=== PATIENT | male | born 1985 | race Caucasian/White ===

== ENCOUNTER 2020-11-14 18:36 | Emergency (ER) | payer BC, MEDICAID, SELFPAY ==
[2020-11-14 18:40] VITALS: BP 132/73; PULSE 86; RESP 20; TEMP 36.7; O2SAT 98; BMI 24.3
--- NOTE | 2020-11-14 18:50 | XR_ITS ---
PROCEDURE INFORMATION: Exam: XR Right Knee Exam date and time: 11/14/2020 6:50 PM Age: 35 years old Clinical indication: Pain; Knee; Right; Additional info: Right anterior knee pain TECHNIQUE: Imaging protocol: XR Right knee. Views: 3 views. COMPARISON: CR [id number] [id number] 07/04/2016 8:49 PM FINDINGS: Bones/joints: On oblique series 2, there is slight cortical lobulation/irregularity along the superior-lateral surface of the patella which appears to be a change compared with the previous exam from 07/04/2016, but this may just be an artifact from rotated positioning rather than true patellar fracture. No definite fracture line is seen on the other views, and there is no significant knee joint effusion. No other acute appearing fracture or dislocation. Slightly coarsened trabecular pattern in the proximal tibial and fibular diaphyses with chronic appearing cortical-periosteal thickening, likely chronic stress reaction or sequela of old trauma.There are no lytic skeletal lesions seen. No significant arthritic deformities. No significant knee joint effusion visible. Soft tissues: No radiopaque foreign bodies. No pathologic soft tissue calcification. IMPRESSION: 1. Minimal deformity of the superolateral patellar cortex which may be new compared with 2017, only seen on oblique series 2. If the patient had trauma to the patella, a sunrise view may help to exclude a patellar injury. 2. No other fracture, dislocation, or evidence of significant knee joint effusion.
--- NOTE | 2020-11-14 18:57 | HMH.EDUTC ---
[facility] [place] Clinical Impression: Knee pain Qualifiers: Chronicity: unspecified Laterality: right Qualified Code(s): M25.561 - Pain in right knee Disposition: Home, Self-Care Condition on Discharge: Good Instructions: How to Use Crutches, How To Perform RICE (Rest, Ice, Compress, Elevate), DI for Knee Pain, Etodolac Additional Instructions: *weight bearing as tolerated *RICE, Rest the extremity, Ice 15-20 minutes 3-4 times daily, Compress- wear the wan wrap as discussed as much as possible to help reduce swelling and pain, Elevate the extremity when at rest *Wan wrap is for support and help control swelling, use it except in the shower. Be sure that is not to tight but not to loose either *Elevate when resting *Ibuprofen 600-800mg every 6-8 hours as needed for pain an inflammation. If need something more can take Tylenol in between doses of Ibuprofen to help Immediately follow up with your family doctor for new or worsening of symptoms, or no noticeable improvement over the next 3-5 days Prescriptions: Etodolac 200 mg PO Q6HP PRN #20 cap PRN Reason: Moderate Pain Transmission Status: Received by [facility] Referrals: Sami Jones MD [Primary Care Provider] - As needed Forms: Work/School Release Time of Disposition: 19:40 Medical Decision Making - Raffy Inquiry Pt receiving controlled substance: No Raffy was queried for this patient: No Vital Signs: 11/14/20 18:40 11/14/20 19:41 Temperature 98.1 F 98.1 F Temperature Source Oral Pulse Rate 86 Pulse Rate [Right Brachial] 86 Respiratory Rate 20 20 Blood Pressure 132/73 Blood Pressure [Right Arm] 132/73 Blood Pressure Mean [Right Arm] 92 Blood Pressure Source [Right Arm] Automatic Cuff Blood Pressure Position [Right Arm] Sitting 02 Sat by Pulse Oximetry 98 Oxygen Delivery Method Room Air - Radiology Data #1 Image(s): Knee Image Reviewed: Yes I reviewed the patient's radiology image w/the ED provider Preliminary Findings: No Fracture Seen [facility] [place] - General Stated complaint: Pain R Knee Time Seen by Provider: 11/14/20 18:57 Mode of Arrival: Ambulatory Source of Information: Patient Limitations: No Limitations Description of Symptoms (Recalled from Triage Doc. by RN): PATIENT C/O RIGHT KNEE PAIN FOR A COUPLE OF DAYS. NO KNOWN INJURY HEENT Symptoms (Recalled from RN notes): No Resp Symptoms (Recalled from RN notes): No Skin Symptoms (Recalled from RN notes): No MS Symptoms (Recalled from RN notes): Yes Functional Status (Recalled from RN notes): WNL - History of Present Illness Provider Complaint: Patient state that his right leg is shorter than his left since and he has been having pain on and off at times but for the last couple of days he has been having sharp pain in his right knee Denies known injury States that pain is worse when he tries to step down on it - Related Data Previous Rx's Medication Instructions Recorded Sulfamethoxazole/Trimethoprim 1 each PO BID #20 tablet 03/27/18 [Bactrim DS tablet] clindamycin HCL [Clindamycin HCl 300 mg PO TID #21 cap 03/27/18 300mg Cap] Etodolac 200 mg PO Q6HP PRN #20 cap 11/14/20 Allergies Allergy/AdvReac Type Severity Reaction Status Date / Time No Known Allergies Allergy Verified 11/14/20 19:00 - Worker's Comp Is this a Worker's Comp case?: No [facility] History - Hepatitis A Screen Drug use history?: No High risk sexual behaviors?: No History of sexually transmitted infection?: No Currently employed?: No Childcare worker?: No Do you have indoor plumbing?: Yes Do you have electricity?: Yes Attestation statement:: This patient has been screened for Hepatitis A risk factors. I have reviewed the patient's past medical history: Yes Medical History: Reports:: MRSA Other Medical History: Reports: Other (IV drug use) - Social History Smoking Status: Current every day smoker Tobacco Type: cigarettes Alcohol Intake: never Occ
[2020-11-14 19:41] VITALS: BP 132/73; PULSE 86; RESP 20; TEMP 36.7; O2SAT 98
== END 2020-11-14 19:43 | disposition home or self-care (01) ==
PROVIDERS: Emergency Provider Nurse Practitioner; PCP Emergency Medicine
DX: M25.561 Pain in right knee (principal); F17.210 Nicotine dependence, cigarettes, uncomplicated
CPT/HCPCS: 73562; 99202; G0463

== ENCOUNTER → 2021-01-10 19:01 | Outpatient (CLI) | payer BC, MEDICAID, SELFPAY ==
[2021-01-10 19:30] LABS: Chloride 95 mmol/L (98-107); Potassium 3.4 mmoL/L (3.5-5.1); Sodium 135 mmol/L (136-145)
[2021-01-10 19:33] LABS: Alanine Aminotransferase 20 U/L (12-78); Albumin Level 3.2 g/dl (3.5-5.0); Albumin/Globulin Ratio 0.8 (1.1-1.8); Alkaline Phosphatase 86 U/L (38-126); Anion Gap 12.4 mEq/L (5-15); Aspartate Amino Transferase 45 U/L (17-59); Bilirubin,Total 0.3 mg/dl (0.2-1.3); Blood Urea Nitrogen 6 mg/dl (9-20); Carbon Dioxide 31 mmol/L (22.0-30.0); Estimated Glomerular Filt Rate 243 ml/min (>60); GFR (African American) 295 ML/MIN (>60); Globulin 4.2 g/dL (1.3-3.2); Total Protein,Serum 7.4 g/dl (6.3-8.2)
[2021-01-10 19:34] LABS: Calcium 8.6 mg/dl (8.4-10.2); Glucose 106 mg/dl (74-100)
== END ==
PROVIDERS: Visit Provider Emergency Medicine
DX: Z00.00 Encounter for general adult medical examination without abnormal findings (principal)
CPT/HCPCS: 80053

== ENCOUNTER 2021-03-10 12:48 | Outpatient (RCR) | payer BC, MEDICAID, SELFPAY | END 2021-03-10 12:50 | disposition home or self-care (01) | LOC: PT 12:48 | PROVIDERS: PCP Emergency Medicine; Visit Provider Orthopaedic Surgery | DX: M87.051 Idiopathic aseptic necrosis of right femur (principal) | CPT/HCPCS: 97163 ==

== ENCOUNTER → 2021-04-18 10:35 | Outpatient (CLI) | payer BC, MEDICAID, SELFPAY ==
[2021-04-18 11:08] LABS: Basophils % 0.2 % (0.1-2.0); Eosinophils # 0.1 K/mm3 (0.0-0.4); Eosinophils % 0.6 % (0.1-12.0); Hematocrit 40.1 % (42.0-52.0); Hemoglobin 13.3 g/dL (14.1-18.0); Lymphocytes # 3.4 K/mm3 (0.7-4.5); Lymphocytes % 21.3 % (10-50); Mean Corpuscular HGB Conc 33.3 g/dL (31.8-35.4); Mean Corpuscular Hemoglobin 28.7 pg (27.0-31.2); Mean Corpuscular Volume 86.2 fl (80-94); Mean Platelet Volume 6.9 fl (7.4-10.4); Monocytes # 0.9 K/mm3 (0.1-1.0); Monocytes % 5.4 % (1.7-9.3); Neutrophils # 11.5 K/mm3 (1.8-7.8); Neutrophils % 72.6 % (37.0-80.0); Platelet Count 391 K/mm3 (142-424); Red Blood Count 4.66 M/mm3 (4.60-6.20); Red Cell Distribution Width 14.2 % (11.5-17.5); White Blood Count 15.8 K/mm3 (4.8-10.8)
[2021-04-18 11:15] LABS: MANUAL DIFFERENTIAL MANUAL DIFFERENTIAL (MANUAL DIFF)
[2021-04-18 12:10] LABS: Chloride 96 mmol/L (98-107); Potassium 3.4 mmoL/L (3.5-5.1); Sodium 135 mmol/L (136-145)
[2021-04-18 12:12] LABS: Alanine Aminotransferase 32 U/L (12-78); Aspartate Amino Transferase 53 U/L (17-59); Blood Urea Nitrogen 5 mg/dl (9-20); Estimated Glomerular Filt Rate 187 ml/min (>60); GFR (African American) 226 ML/MIN (>60)
[2021-04-18 12:13] LABS: Albumin Level 3.6 g/dl (3.5-5.0); Albumin/Globulin Ratio 0.9 (1.1-1.8); Alkaline Phosphatase 77 U/L (38-126); Anion Gap 11.4 mEq/L (5-15); Bilirubin,Total 0.4 mg/dl (0.2-1.3); Calcium 8.7 mg/dl (8.4-10.2); Carbon Dioxide 31 mmol/L (22.0-30.0); Globulin 3.9 g/dL (1.3-3.2); Glucose 100 mg/dl (74-100); INR 1.14 (0.9-1.1); Prothrombin Time 12.8 seconds (10.1-12.5); Total Protein,Serum 7.5 g/dl (6.3-8.2)
[2021-04-18 12:42] LABS: Lymphocytes % 27 % (10-50); Monocytes % 3 % (2-9); Neutrophils % 70 % (42-76); Platelet Estimate Normal; RBC Morphology Normal; Total Cells Counted 100
[2021-04-19 09:13] LABS: HIV Screen 4th Generation wRfx Non Reactive (Non Reactive)
[2021-04-19 11:33] LABS: Hep A Ab, IgM Negative (Negative); Hep A Ab, Total Negative (Negative); Hep B Core Ab, Total Negative (Negative); Hep B Surface Ab, Qual Non Reactive (.); Hepatitis B Surface Antigen Negative (Negative); Hepatitis C Antibody >11.0 s/co ratio (0.0-0.9)
[2021-04-20 02:13] LABS: ALT (SGPT) P5P 29 IU/L (0-55); Alpha 2-Macroglobulins, Qn 231 mg/dL (110-276); Apolipoprotein A-1 67 mg/dL (101-178); Bilirubin, Total 0.4 mg/dL (0.0-1.2); Fibrosis Score 0.19 (0.00-0.21); GGT 11 IU/L (0-65); Haptoglobin 279 mg/dL (17-317); Necroinflammat Activity Grade A0-No activity (.); Necroinflammat Activity Score 0.12 (0.00-0.17)
[2021-04-20 19:09] LABS: HCV Genotype Charge YES; Hepatitis C Genotype 1a (.)
== END ==
PROVIDERS: Visit Provider Emergency Medicine
DX: R19.8 Other specified symptoms and signs involving the digestive system and abdomen (principal); R53.83 Other fatigue; R79.1 Abnormal coagulation profile; Z11.4 Encounter for screening for human immunodeficiency virus [HIV]; B19.20 Unspecified viral hepatitis C without hepatic coma; K21.9 Gastro-esophageal reflux disease without esophagitis
CPT/HCPCS: 36415; 80053; 81596; 85007; 85025; 85610; 86703; 86704; 86706; 86708; 87340; 87380; 87522; 87902; G0432

== ENCOUNTER 2021-06-20 11:00 | Outpatient (RCR) | payer BC, MEDICAID, SELFPAY | END 2021-07-12 13:57 | disposition home or self-care (01) | LOC: PT.CARL 11:00 | PROVIDERS: PCP Emergency Medicine; Visit Provider Orthopaedic Surgery | DX: M25.551 Pain in right hip (principal); Z96.641 Presence of right artificial hip joint | CPT/HCPCS: 97110; 97112; 97116; 97163; 97164 ==

== ENCOUNTER 2024-06-23 21:23 | Emergency (ER) | payer OTHER, SELFPAY ==
--- NOTE | 2024-06-23 21:39 | ED_ITS ---
<Statement entered by Cari Eckert DO - 06/23/24 23:45> I was consulted by the OWEN, and we discussed the complexity of the problems being addressed. I approved the treatment and management plan for this patient's care in the emergency department, thus performing a substantive portion of the medical decision making. I assumed care of the patient at time of departure of the OWEN. On my assessment, he states he is feeling a whole lot better. He is able to tolerate oral intake without issue. He has no abdominal pain. Abdominal exam is benign. Given this, I feel he is appropriate for discharge with prescription for Zofran and instructions for supportive management of nausea and vomiting. She return precautions were given as well as instructions for close follow-up with primary care. Patient was discharged after all questions were answered Cari Eckert DO Discharge Plan Disposition Chief Complaint: Upper Respiratory Infection Prescriptions Prescriptions: No Action sofosbuvir-velpatasvir 400-100 mg tablet 1 tab PO DAILY Qty: 28 2RF Referrals Follow up/Referrals: Provider,Referral, [Primary Care Provider] - See instructions Print Language Print Language: Polish Discharge ED Provider: Cari Eckert General Adult HPI General Chief complaint: Upper Respiratory Infection Stated complaint: vomiting,fever,body aches Time Seen by Provider: 06/23/24 21:39 History of Present Illness HPI narrative: Patient presents for evaluation of cough nausea vomiting. Patient floridly has felt unwell body aches and malaise with a headache but no sore throat and he has had nausea with vomiting today. Patient reports that he has had a bowel movement and does have flatus and no abdominal pain chest pain shortness of breath hemoptysis hematochezia melena hematemesis hematuria diarrhea. Related Data Previous Rx's ?Medication ?Instructions ?Recorded sofosbuvir 400 mg-velpatasvir 100 1 tab PO DAILY #28 tabs 05/23/ mg tablet Allergies Allergy/AdvReac Type Severity Reaction Status Date / Time No Known Allergies Allergy Verified 04/17/21 11:47 [facility] Disclaimer: The information contained in this section may have been updated after the patient was seen, as this information can be updated by other users. Social History Smoking Status: Current every day smoker tobacco type: cigarettes second hand exposure: No alcohol intake: never current occupational status: other Travel in the last 8 weeks: None Have you lived/traveled outside [place] in past 30 days?: No Contact w/someone who lives/traveled outside [place] past 30 days?: No Exposure to someone with infectious disease in past 14 days?: No Do you have a fever (greater than 100.4 F or 38 C)?: Yes Have you tested positive for COVID-19: No Exposed to someone with COVID-19 in past 14 days?: No Do you have a sore throat?: No Do you have a cough?: No Do you have any weakness?: No Do you have any diarrhea?: No Are you experiencing any unusual bleeding?: No Do you have any muscle aches/pain?: Yes Do you have any abdominal pain?: No Are you experiencing loss of taste or smell?: No Other Medical History Have you received the Pneumonia Vaccine: No ROS Obtained: Yes Systems reviewed as appropriate & no additional complaints except as documented Physical Exam General General appearance: alert and in no apparent distress Respiratory Respiratory exam: Present normal lung sounds bilaterally Cardiovascular Cardiovascular exam: Present regular rate Neurological Exam Neurological exam: Present alert and oriented X3 Medical Decision Making Medical Records Screening: Per USPSTF and CDC recommendations, given the prevalence of disease in our region, it is our hospital?s policy to screen for HIV and viral Hepatitis for all patients aged 18 and over and those with ongoing risk factors. Raffy Inquiry Pt receiving controlled substance: No Vital Signs: 06/23/24 21:41 Temperature 97.7 F Temperature Source Oral Pulse Rate [Right Brachial] 57 L Respiratory Rate 20 Blood Pressure [Right Arm] 136/88 Blood Pressure Mean [Right Arm] 104 Blood Pressure Source [Right Arm] Automatic Cuff Blood Pressure Position [Right Arm] Sitting 02 Sat by Pulse Oximetry 100 Oxygen Delivery Method Room Air Lab Data Lab results reviewed: Yes I reviewed the patient's lab results. Orders (Tests/Meds): ED MEDICATIONS Discontinued Medications Generic Name Dose Route Start Last Admin Trade Name Freq PRN Reason Stop Dose Admin Ondansetron HCl 4 mg 06/23/24 21:47 06/23/24 21:51 Ondansetron 4mg Odt SL 06/23/24 21:48 4 mg ONCE ONE Administration ORDERS Category Date Time Status HIV Combo Routine Lab 06/23/24 21:44 Ordered Hepatitis C Ab Qual. W/ RFX Routine Lab 06/23/24 21:44 Ordered Rapid PCR Covid and Flu A/B Stat Lab 06/23/24 21:44 Received Medical Decision Narrative: In summary patient is a 39-year-old male who presents to the emergency department for evaluation of cough headache nausea vomiting. Patient is hemodynamically stable upon arrival, currently afebrile at 97.7. Physical exam reveals actually normal posterior pharynx normal breath sounds with no increased work of breathing or adventitious sounds, soft nontender abdomen with no rebound no guarding rigidity normal bowel sounds.. Differential diagnosis includes upper or lower respiratory tract infection versus gastroenteritis etc. Initial workup will be conducted with COVID and flu swabs.. Initial interventions include Zofran. Initial workup ordered and pending at the time of handoff to Dr. Eckert at 2200 hrs. Critical Care Critical Care Time Critical Care Time: No
[2024-06-23 21:41] VITALS: BP 136/88; PULSE 57; RESP 20; TEMP 36.5; O2SAT 100; BMI 25.8
[2024-06-23] MEDS: ONDANSETRON 4MG ODT 4 MG SL (21:51)
--- NOTE | 2024-06-23 21:53 | PC.NURSE ---
Pt awake alert and oriented Skin pink warm and dry Resp full and easy Speech clear and appropriate.
[2024-06-23 22:07] LABS: Coronavirus 19, PCR Not Detected (NotDetected); Influenza A, PCR Not Detected (NotDetected); Influenza B, PCR Not Detected (NotDetected)
[2024-06-23 22:47] VITALS: BP 130/80; PULSE 57; RESP 20; TEMP 36.7; O2SAT 100
== END 2024-06-23 22:51 | disposition home or self-care (01) ==
PROVIDERS: Physician Assistant; Emergency Provider Emergency Medicine
DX: R11.2 Nausea with vomiting, unspecified (principal); R05.9 Cough, unspecified; M79.10 Myalgia, unspecified site; R53.81 Other malaise; R51.9 Headache, unspecified; F17.210 Nicotine dependence, cigarettes, uncomplicated
CPT/HCPCS: 87636; 99283; Q0162